=== PATIENT | female | born 1985 | race Two or more races ===

== ENCOUNTER 2017-11-29 23:54 | Emergency (ER) | payer MEDICAID ==
[~2017-11-29] VITALS: Ht 175.3 cm; Wt 86.2 kg
[~2017-11-29 23:54] MED LIST: BACTRIM DS TAB1 EAC1 ORAL; BACTRIM-DS1 EA ORAL; CEPHALEXIN500 MG ORAL; CIPRO500 MG PO; IBUPROFEN600 MG ORAL; KEFLEX500 MG ORAL; KEFLEX500 MG PO; NKM; NORCO 5-325 TA1 EACH PO; NORCO1 EA ORAL; PHENAZOPYRIDIN100 MG ORAL; RANITIDINE HCL150 MG ORAL
[2017-11-30] MEDS ORDERED: Ketorolac 30mg Inj IV ONE (00:30)
--- NOTE | 2017-11-30 00:42 | Emergency Room Report ---
History of Present Illness General Chief Complaint: Female Urogenital Problems Source: Patient Present Illness [facility] This 32-year-old female with a history of kidney stone. She said that her kidney stone requiring surgery and there was a complication with surgeon cutting a vein that she had internal bleeding require blood transfusion. No cough or case and since. She presents with chief complaint of suprapubic pain this started tonight. She does have dysuria and frequency. Also with urgency. Now pain radiating up to her left flank and back area. She has nausea but no vomiting. [place] hot. Pain is 9 out of 10. Worse with urination. No hematuria. Allergies: Coded Allergies: No Known Allergies (Unverified , 09/03/12) Patient History Past Medical History: see triage record, old chart reviewed Past Surgical History: other Pertinent Family History: none Social History: Denies: smoking Last Menstrual Period: 10/29/17 Now: No Immunizations: other Reviewed Nursing Documentation: PMH: Agreed; PSxH: Agreed Nursing Documentation-PMH Past Medical History: No History, Except For Hx Asthma: Yes Review of Systems Eye: Denies: eye pain, blurred vision ENT: Denies: ear pain, nose congestion, throat swelling Respiratory: Denies: cough, shortness of breath Cardiovascular: Denies: chest pain, palpitations Gastrointestinal: Denies: abdominal pain, diarrhea, nausea, vomiting Genitourinary: Reports: dysuria, frequency, pain Musculoskeletal: Denies: back pain, joint pain Skin: Denies: rash Neurological: Denies: headache, numbness Endocrine: Denies: increased thirst, increased urine Hematologic/Lymphatic: Denies: easy bruising All Other Systems: negative except mentioned in HPI Physical Exam Vital Signs Date Time Temp Pulse Resp B/P (MAP) Pulse Ox O2 Delivery O2 Flow Rate FiO2 11/30/17 00:05 98.5 114 21 125/81 96 Room Air 98.4 vitals with tachycardia Sp02 EP Interpretation: reviewed, normal General Appearance: well appearing, no apparent distress, alert Head: normocephalic, atraumatic Eyes: bilateral eye PERRL, bilateral eye EOMI ENT: hearing grossly normal, normal pharynx Neck: full range of motion, supple, no meningismus Respiratory: chest non-tender, lungs clear, normal breath sounds Cardiovascular #1: regular rate, rhythm, no murmur Gastrointestinal: normal bowel sounds, non tender, no mass, no organomegaly, no bruit, non-distended Genitourinary: CVA tenderness (L) Musculoskeletal: back normal, gait/station normal, normal range of motion Psychiatric: mood/affect normal Skin: warm/dry Medical Decision Making Diagnostic Impression: Primary Impression: Acute pyelonephritis ER Course She presents with symptoms consistent with acute pyelonephritis. No evidence of kidney stone or infected stone. She felt better now. We'll discharge home. Lab Results Impression labs unremarkable CT/MRI/US Diagnostic Results CT/MRI/US Diagnostic Results : Imaging Test Ordered: CT abdomen and pelvis Impression Read by radiologist. Normal appendix. No kidney stone. Stranding around the bladder. Last Vital Signs Date Time Temp Pulse Resp B/P (MAP) Pulse Ox O2 Delivery O2 Flow Rate FiO2 11/30/17 00:37 98.5 11/30/17 00:05 114 21 125/81 96 Room Air Status: improved Disposition: HOME, SELF-CARE Condition: Stable Scripts Cephalexin* (KEFLEX*) 500 Mg Capsule 500 MG ORAL TID, #30 CAP Prov: ROXIE FELICIANO M.D. 11/30/17 Ibuprofen* (MOTRIN*) 600 Mg Tablet 600 MG ORAL THREE TIMES A DAY, #30 TAB 0 Refills Prov: ROXIE FELICIANO M.D. 11/30/17 Additional Instructions: Follow-up your in 2-3 days if not better. Return if worse. ROXIE FELICIANO M.D. Nov 30, 2017 00:42
[2017-11-30 00:52] LABS: BASOPHILS % (AUTO) 0.4 % (0.0-2.0); EOSINOPHILS % (AUTO) 1.2 % (0.0-3.0); HEMATOCRIT 39.2 % (37.0-47.0); HEMOGLOBIN 13.1 G/DL (12.0-16.0); LYMPHOCYTES % (AUTO) 22.2 % (20.0-45.0); MEAN CORPUSCULAR VOLUME 91 FL (80-99); MONOCYTES % (AUTO) 7.9 % (1.0-10.0); NEUTROPHILS % (AUTO) 68.3 % (45.0-75.0); PLATELET COUNT 241 K/UL (150-450); RED BLOOD COUNT 4.31 M/UL (4.20-5.40); RED CELL DISTRIBUTION WIDTH 12.6 % (11.6-14.8); WHITE BLOOD COUNT 10.1 K/UL (4.8-10.8)
[2017-11-30 00:54] LABS: APPEARANCE,URINE CLOUDY; BILIRUBIN, URINE NEGATIVE (NEGATIVE); GLUCOSE, URINE (UA) NEGATIVE (NEGATIVE); KETONES,URINE NEGATIVE (NEGATIVE); LEUKOCYTE ESTERASE ,URINE 2+ (NEGATIVE); NITRITE,URINE POSITIVE (NEGATIVE); PH,URINE 6 (4.5-8.0); PROTEIN,URINE 3+ (NEGATIVE); UROBILINOGEN,URINE NORMAL MG/DL (0.0-1.0)
[2017-11-30 00:59] LABS: COLOR,URINE YELLOW
[2017-11-30 01:02] LABS: ANION GAP 6 mmol/L (5-15); BLOOD UREA NITROGEN 15 mg/dL (7-18); CALCIUM 8.9 MG/DL (8.5-10.1); CARBON DIOXIDE 28 MMOL/L (21-32); CHLORIDE 107 MMOL/L (98-107); CREATININE 0.8 MG/DL (0.55-1.30); POTASSIUM 4.4 MMOL/L (3.5-5.1); SODIUM 141 MMOL/L (136-145)
[2017-11-30 01:09] LABS: ALANINE AMINOTRANSFERASE 17 U/L (12-78); ALBUMIN 3.7 G/DL (3.4-5.0); ALKALINE PHOSPHATASE 84 U/L (46-116); ASPARTATE AMINO TRANSFERASE 12 U/L (15-37); BILIRUBIN,TOTAL 0.4 MG/DL (0.2-1.0)
[2017-11-30] MEDS ORDERED: cefTRIAXone 1 GM in NS 55 ML IVPB ONE (01:15)
[2017-11-30 01:27] VITALS: BP 105/59
--- NOTE | 2017-11-30 01:36 | Diagnostic Imaging Report ---
EXAM: CT Abdomen and Pelvis Without Intravenous Contrast CLINICAL HISTORY: ABD PAIN TECHNIQUE: Axial computed tomography images of the abdomen and pelvis without intravenous contrast. CTDI is 7.47, 18.7 mGy and DLP is 991 mGy-cm. One or more of the following dose reduction techniques were used: automated exposure control, adjustment of the mA and/or kV according to patient size, use of iterative reconstruction technique. COMPARISON: No relevant prior studies available. FINDINGS: Lung bases: Dependent atelectasis. ABDOMEN: Liver: Unremarkable. Gallbladder and bile ducts: Gallbladder is surgically absent. Pancreas: Unremarkable. Spleen: Unremarkable. Adrenals: Unremarkable. Kidneys and ureters: Unremarkable. Stomach and bowel: Unremarkable. PELVIS: Appendix: The appendix is unremarkable. Bladder: Mild stranding noted about the urinary bladder which may be secondary to underdistention. Correlate with urinalysis to exclude cystitis. Reproductive: Unremarkable as visualized. ABDOMEN and PELVIS: Intraperitoneal space: Unremarkable. Bones/joints: Mild height loss of the anterior column of T12, likely representing remote age-indeterminate fracture. No dislocation. Soft tissues: Unremarkable. Vasculature: Unremarkable. No abdominal aortic aneurysm. Lymph nodes: Unremarkable. IMPRESSION: Mild stranding noted about the urinary bladder which may be secondary to underdistention. Correlate with urinalysis to exclude cystitis.
[2017-11-30] MEDS ORDERED: CEPHALEXIN500 MG ORAL (02:05)
[2017-11-30] MEDS ORDERED: IBUPROFEN600 MG ORAL (02:05)
[2017-11-30 02:12] VITALS: BP 105/59
== END 2017-11-30 02:13 | disposition home or self-care (01) ==
LOC: EMR 11-30 01:06
DX: N10 Acute pyelonephritis (principal); R00.0 Tachycardia, unspecified; J45.909 Unspecified asthma, uncomplicated
CPT/HCPCS: 36415; 74176; 80053; 81003; 81025; 83690; 85025; 87086; 87181; 96360; 96361; 96374; 96375; 99284; J0696; J1885; J2405

== ENCOUNTER 2018-08-19 22:11 | Emergency (ER) | payer MEDICAID ==
[~2018-08-19] VITALS: Ht 175.3 cm; Wt 88.5 kg
[2018-08-19] MEDS ORDERED: PROAIR HFA8.5 GM INH (22:26)
[2018-08-19] MEDS ORDERED: IBUPROFEN600 MG ORAL (22:26)
--- NOTE | 2018-08-19 22:29 | NUR ---
ED Nurse Note: PT AMBULATED TO ED WITH C/O COUGH AND SOB X2 WEEKS. PREVIOUSLY SAW DOCTOR FOR SAME REASON 1 WEEK [employer]. NO RELEIF SINCE THEN. Pt is AO x 4times, VSS, on room air no distress. ERMD seen Pt at bedside.
[2018-08-19 22:35] VITALS: BP 142/78
--- NOTE | 2018-08-19 22:50 | NUR ---
ED Nurse Note: Breathing treatment at bedside.
[2018-08-19] MEDS ORDERED: ZITHROMAX250 MG ORAL (22:56)
[2018-08-19] MEDS ORDERED: PREDNISONE20 MG ORAL (22:56)
--- NOTE | 2018-08-19 22:56 | Emergency Room Report ---
History of Present Illness General Chief Complaint: Upper Respiratory Illness Source: Patient Present Illness HPI This is a 32-year-old female with no cerumen past medical history. She is a smoker. She presents with chief complaint of coughing congestion with on and off fever for last 2 weeks. Seen at urgent care and given albuterol inhaler. Not helping. Unable to smoke. No nausea no vomiting. Also with on and off diarrhea. Worse with inspiration. Worse with lying flat. Denies any other complaint. Family history of asthma. Allergies: Coded Allergies: No Known Allergies (Unverified , 09/03/12) Patient History Past Medical History: see triage record, old chart reviewed Past Surgical History: none Pertinent Family History: none Social History: Denies: smoking Last Menstrual Period: 08/01/18 Now: No Immunizations: other Reviewed Nursing Documentation: PMH: Agreed; PSxH: Agreed Nursing Documentation-PMH Past Medical History: No History, Except For Hx Asthma: Yes Review of Systems Constitutional: Reports: fever Eye: Denies: eye pain, blurred vision ENT: Denies: ear pain, nose congestion, throat swelling Respiratory: Reports: cough, shortness of breath Cardiovascular: Denies: chest pain, palpitations Gastrointestinal: Denies: abdominal pain, diarrhea, nausea, vomiting Musculoskeletal: Denies: back pain, joint pain Skin: Denies: rash Neurological: Denies: headache, numbness Endocrine: Denies: increased thirst, increased urine Hematologic/Lymphatic: Denies: easy bruising All Other Systems: negative except mentioned in HPI Physical Exam Vital Signs Date Time Temp Pulse Resp B/P (MAP) Pulse Ox O2 Delivery O2 Flow Rate FiO2 08/19/18 22:22 98.2 122 24 155/71 96 08/19/18 22:35 Room Air vitals with tachycardia Sp02 EP Interpretation: reviewed, normal General Appearance: well appearing, no apparent distress, alert Head: normocephalic, atraumatic Eyes: bilateral eye PERRL, bilateral eye EOMI ENT: hearing grossly normal, normal pharynx Neck: full range of motion, supple, no meningismus Respiratory: chest non-tender, normal breath sounds, rhonchi - At bases Cardiovascular #1: regular rate, rhythm, no murmur Gastrointestinal: normal bowel sounds, non tender, no mass, no organomegaly, no bruit, non-distended Musculoskeletal: back normal, gait/station normal, normal range of motion Psychiatric: mood/affect normal Skin: warm/dry Medical Decision Making Diagnostic Impression: Primary Impression: Community acquired pneumonia Qualified Codes: J18.9 - Pneumonia, unspecified organism ER Course Patient with URI symptoms now with fever. Probably with secondary pneumonia. Better after breathing treatment. We'll discharge home with antibiotics. Last Vital Signs Date Time Temp Pulse Resp B/P (MAP) Pulse Ox O2 Delivery O2 Flow Rate FiO2 08/19/18 22:35 111 24 Room Air 08/19/18 22:35 98.1 142/78 96 Status: improved Disposition: HOME, SELF-CARE Condition: Stable Scripts Prednisone* (PREDNISONE*) 20 Mg Tablet 40 MG ORAL DAILY, #10 TAB Prov: Angus Chow MD 08/19/18 Azithromycin* (ZITHROMAX*) 250 Mg Tablet 250 MG ORAL DAILY, #6 TAB 0 Refills Take two tables once daily for 1 day, then one tablet once daily for 4 days. Prov: Angus Chow MD 08/19/18 Additional Instructions: Increase fluids. Stop smoking. Follow-up with your doctor in 7 days. Return if worse. Angus Chow MD Aug 19, 2018 22:56
[2018-08-19] MEDS ORDERED: Albuterol ud Inhalation HHN ONE (23:00)
[2018-08-19 23:18] VITALS: BP 138/82
[2018-08-19 23:20] VITALS: BP 138/82
--- NOTE | 2018-08-19 23:20 | NUR ---
ER DISCHARGE NOTE: Patient is cleared to be discharged per ERMD, pt is aox4, on room air, with stable vital signs. pt was given dc and prescription instructions, pt was able to verbalize understanding, pt id band removed without complications. pt is able to ambulate with steady gait. pt took all belongings.
== END 2018-08-19 23:20 | disposition home or self-care (01) ==
LOC: EMR 22:44
DX: J18.9 Pneumonia, unspecified organism (principal); J44.9 Chronic obstructive pulmonary disease, unspecified
CPT/HCPCS: 94640; 94664; 99284

== ENCOUNTER 2020-02-16 21:17 | Emergency (ER) | payer MEDICAID ==
[~2020-02-16] VITALS: Ht 175.3 cm; Wt 90.7 kg
[~2020-02-16 21:17] MED LIST changes: +PREDNISONE20 MG ORAL; +PROAIR HFA8.5 GM INH; +ZITHROMAX250 MG ORAL
[2020-02-16 21:30] VITALS: BP 124/78
--- NOTE | 2020-02-16 21:30 | NUR ---
ED Nurse Note: Patient walked into ED from home for c/o R thumb laceration onset [employer]. She nots she was cleaning under her bed and accidentally cut it on the metal bed frame. Laceration noted with mild bleeding to R thumb. Patient is aaox4, breathing is normal and unlabored. Last tetanus vaccine date is unknown.
--- NOTE | 2020-02-16 21:42 | Emergency Room Report ---
History of Present Illness General Chief Complaint: Laceration Source: Patient (Alan Mendoza MD) Present Illness HPI Disclaimer: Please note that this report is being documented using DRAGON technology. This can lead to erroneous entry secondary to incorrect interpretation by the dictating instrument. HPI: 34-year-old [id number] female presents for evaluation of thumb laceration. She was cleaning under the bed when she believes she got her right thumb caught underneath the bed frame. She believes there is a jagged piece of metal. Denies foreign body sensation and reports immediate brisk bleeding but no pulsatile bleeding. Bleeding stopped by applying pressure. Cannot recall last tetanus. Denies numbness or tingling. Maintains flexion extension. No other injuries reported. PMH: Reviewed PSH: Reviewed Allergies: Reviewed Social Hx: Reviewed (Alan Mendoza MD) Allergies: Coded Allergies: No Known Allergies (Unverified , 09/03/12) COVID-19 Screening Contact w/high risk pt: No Experienced COVID-19 symptoms?: No COVID-19 Screening: Negative COVID-19 COVID-19 Testing Source: clinic (Alan Mendoza MD) Patient History Now: No (Alan Mendoza MD) Nursing Documentation-PMH Hx Asthma: Yes (Alan Mendoza MD) Review of Systems All Other Systems: negative except mentioned in HPI (Alan Mendoza MD) Physical Exam Vital Signs Date Time Temp Pulse Resp B/P (MAP) Pulse Ox O2 Delivery O2 Flow Rate FiO2 02/16/20 21:25 98.4 120 19 124/78 (93) 98 Room Air General: Awake and alert, no acute distress HEENT: NC/AT. EOMI. Resp: Normal work of breathing Skin: Approximately 4 cm laceration over the radial aspect of the right thumb extending from the lateral aspect of the nailbed proximally down in a semilunar fashion towards the interphalangeal joint. Does not involve the nail or nailbed. No evidence of ligamentous injury. MSK: Normal tone and bulk. Moving all extremities. No obvious deformity. Neuro: Awake and alert. Mentating appropriately. Sensation intact over the radial and ulnar aspect of the right thumb. (Alan Mendoza MD) Procedures Laceration/Wound Repair Laceration/Wound Repair : Wound Location: upper extremity, other - Right thumb Wound's Depth, Shape: superficial Wound Explored: clean Betadine Prep?: Yes Anesthesia: 1% Lidocaine Suture Size/Type: 4:0 Number of Sutures: 4 Layer Closure?: Yes Sterile Dressing Applied?: Yes Splint Applied?: Yes Type of Splint Applied: Finger splint Patient Tolerated: Well Complications: None (Checo Craft M.D.) Medical Decision Making Diagnostic Impression: Primary Impression: Laceration ER Course Is a 34-year-old female presenting for evaluation of laceration from a piece of metal under her bed. Patient is neurovascularly intact. Tetanus will be updated. No radiopaque foreign body or fracture was identified on x-ray. (Alan Mendoza MD) ER Course 34-year-old female here with a right thumb laceration. X-ray right hand: No radiopaque foreign bodies. No bony or joint abnormalities Laceration was repaired as described above using 4 4-0 nylon sutures with good wound approximation and no residual bleeding. Patient was placed in a finger splint. She was neurovascularly intact before and after the splint was placed. It was placed by the [facility] and evaluated by myself. Patient was given instructions to come back to the emergency department in 7 days for suture removal. She was given instructions to return to the emergency department sooner if there is any wound evisceration, signs of infection. She expressed understanding and was discharged. (Checo Craft M.D.) Other X-Ray Diagnostic Results Other X-Ray Diagnostic Results : X-Ray ordered: Right thumb # of Views/Limited Vs Complete: 2 View Indication: Pain EP Interpretation: Yes Interpretation: other - No radiopaque foreign body Impression: No acute disease Electronically Signed by: Electronically signed by Dr. Alan Mendoza (Alan Mendoza MD) Last Vital Signs Date Time Temp Pulse Resp B/P (MAP) Pulse Ox O2 Delivery O2 Flow Rate FiO2 02/16/20 21:25 98.4 120 19 124/78 (93) 98 Room Air (Alan Mendoza MD) Disposition: HOME, SELF-CARE Condition: Stable Alan Mendoza MD Feb 16, 2020 21:42 Checo Craft M.D. Feb 16, 2020 22:35
[2020-02-16] MEDS ORDERED: Tetanus/Diptheria/Pertussis IM ONE (21:45)
[2020-02-16] MEDS ORDERED: Lidocaine 1% Plain 30 ml INJ ONE (21:45)
--- NOTE | 2020-02-16 22:20 | NUR ---
ED Nurse Note: ERMD bedside for laceration repair.
[2020-02-16 22:45] VITALS: BP 125/88
--- NOTE | 2020-02-16 22:45 | NUR ---
ER DISCHARGE NOTE: Patient is cleared to be discharged per ERMD, pt is aox4, on room air, with stable vital signs. pt was given dc instructions, pt was able to verbalize understanding, pt id band removed. pt is able to ambulate with steady gait. pt took all belongings.
--- NOTE | 2020-02-17 16:26 | Diagnostic Imaging Report ---
Indication: Pain, trauma, laceration Technique: 3 views right thumb Comparison: none Findings: No acute fractures. No dislocations. No radiopaque foreign body. Impression: No acute bony trauma or radiopaque foreign body
== END 2020-02-16 22:45 | disposition home or self-care (01) ==
LOC: EMR 21:42
DX: S61.011A Laceration without foreign body of right thumb without damage to nail, initial encounter (principal); Z23 Encounter for immunization; W26.9XXA Contact with unspecified sharp object(s), initial encounter; Y92.9 Unspecified place or not applicable
CPT/HCPCS: 12002; 73140; 90471; 90715; J2001; Z7502; 99283